=== PATIENT | male | born 1955 | race Caucasian/White ===

== ENCOUNTER → 2018-10-29 | Outpatient (CLI) | payer OTHER ==
[2018-10-29 13:03] LABS: INR 0.87; PROTHROMBIN TIME 12.7 seconds (11.9-14.5)
[2018-10-29 13:04] LABS: PARTIAL THROMBOPLASTIN TIME 29.4 seconds (23.8-35.5)
[2018-10-29 13:10] LABS: BLOOD UREA NITROGEN 26 mg/dL (7-26); BUN/CREATININE RATIO 23 (6-25); CREATININE, SERUM 1.15 mg/dL (0.72-1.25); EST GLOMERULAR FILTRATION RATE > 60 ML/MIN (60-)
--- NOTE | 2018-10-29 14:20 | Diagnostic Imaging Report ---
EXAM: CHEST XRAY LINE PLACEMENT, AP Portable DATE: 10/29/2018 Time stamp on exam: 1:51 PM INDICATION: PICC placement COMPARISON: None FINDINGS: LINES/TUBES: Left-sided PICC terminates overlying the SVC. LUNGS: No consolidations or edema. Left basilar atelectasis. PLEURA: No effusions or pneumothorax. HEART AND MEDIASTINUM: Normal size and contour. BONES AND SOFT TISSUES: No acute findings. Metallic plate overlies the lower cervical spine. IMPRESSION: 1. No acute thoracic abnormality. 2. Left PICC in appropriate position. Signed by: Dr. Mikel Horta DO on 10/29/2018 2:17 PM
== END ==
LOC: DX 12:12
PROVIDERS: ATTEND Internal Medicine Infectious Disease
DX: M86.141 Other acute osteomyelitis, right hand (principal)
CPT/HCPCS: 36415; 36569; 71045; 82565; 84520; 85049; 85610; 85730; 87071; 87075; 87205

== ENCOUNTER → 2018-10-30 | Outpatient (CLI) | payer OTHER ==
--- NOTE | 2018-10-30 12:18 | Diagnostic Imaging Report ---
TECHNIQUE: Magnetic resonance imaging of the RIGHT HAND (Ring/fourth finger) was performed WITHOUT injected contrast. HISTORY: Infection, right fourth ring finger, pain, swelling, cut the end of the finger COMPARISON: None available FINDINGS: BONES: Erosion of the ischial aspect of the fourth distal phalanx, radial greater than ulnar. Mild edema of the base of the residual distal phalanx, with preservation of the fatty marrow signal. JOINTS: No dislocation or joint effusion. SOFT TISSUES: Signal void at the tip of the ring finger, compatible with a soft tissue defect. Marked regional soft tissue edema. Enhancement characteristics cannot be assessed. IMPRESSION: Findings compatible with osteomyelitis involving the distal aspect of the distal phalanx of the ring finger. Signed by: Ravin Connors.O., M.M.M. on 10/30/2018 12:14 PM
== END ==
LOC: MRI 09:26
PROVIDERS: ATTEND Plastic Surgery
DX: L08.9 Local infection of the skin and subcutaneous tissue, unspecified (principal)

== ENCOUNTER → 2018-12-04 | Outpatient (CLI) | payer OTHER ==
[~2018-12-04] MED LIST: IOPAMIDOL 370 MG/ML 200 ML INFUS..BTL INJ ONE; SODIUM CHLORIDE 0.9% 50ML 50 ML ONE
[2018-12-04 11:47] LABS: BLOOD UREA NITROGEN 19 mg/dL (7-26); BUN/CREATININE RATIO 19 (6-25); EST GLOMERULAR FILTRATION RATE > 60 ML/MIN (60-)
--- NOTE | 2018-12-04 12:43 | Diagnostic Imaging Report ---
EXAMINATION: CT scan of the chest with contrast. TECHNIQUE: Spiral CT images of the chest were performed from the lung apices to the level of the adrenal glands after the intravenous administration of 100 cc of Isovue-370. Coronal and sagittal reformatted images were obtained. COMPARISON: None. 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 LUNGS AND AIRWAYS: Scattered small air-filled cysts in the upper lobes right greater than left. Left hemidiaphragmatic elevation with Bandlike opacities in the lingula and left lower lobe compatible with atelectasis. No suspicious nodule or mass lesion. No gross fibrotic change. Trachea, mainstem bronchi, and central lobar and segmental bronchi are patent. PLEURA: No pneumothorax or pleural effusions. HEART AND MEDIASTINUM: Visualized portions of the thyroid gland appear normal. Atherosclerotic calcification of the coronary arteries and aortic arch. No ectasia or aneurysmal dilatation of the thoracic aorta. Great vessel origins are of normal caliber and configuration. Pulmonary outflow tract is of normal caliber. No central pulmonary embolus. Normal heart size without pericardial effusion. LYMPH NODES: No axillary, hilar, or mediastinal lymphadenopathy. ABDOMEN: Visualized portions of the liver, spleen, pancreas, adrenals, and upper poles of the kidneys are unremarkable. BONES AND SOFT TISSUES: No osseous destructive lesions. Cervical spine fusion hardware partially visualized. IMPRESSION: No suspicious pulmonary nodule or mass lesion. Left hemidiaphragmatic elevation with bandlike atelectasis or fibrotic change in the lingula and left lower lobe. Atherosclerotic vascular disease. Signed by: Dr. Anshu Duran M.D. on 12/04/2018 12:40 PM
--- NOTE | 2018-12-04 20:03 | Diagnostic Imaging Report ---
Bone Scan, delayed phase INDICATION: Squamous cell carcinoma of right 5th finger; evaluate for bone metastases COMPARISON: CT of chest 12/04/2018 REPORT: Following intravenous administration of 25 mCi of Tc-99m MDP, dynamic flow and immediate blood pool images of the wrists and hands were obtained followed by 4-hour delayed total body images in the anterior and posterior projections and selected spot images were obtained. The flow and blood pool images show diffusely increased tracer in the right hand and wrist compared to the left without focal abnormality. Amputation of the distal phalanx of the right 4th finger is noted. Distribution of tracer activity is unremarkable throughout the skeletal system on the delayed images. No abnormal accumulation of tracer is seen in the soft tissues or urinary tract. IMPRESSION: 1. No scan evidence of metastatic bone disease. 2. Mild hyperemic process in the right hand and wrist related to recent surgery of 4th finger. Signed by: Dr. Barbara Gresham M.D. on 12/04/2018 8:00 PM
== END ==
LOC: NM 10:57
PROVIDERS: ATTEND Internal Medicine Medical Oncology
DX: C79.51 Secondary malignant neoplasm of bone (principal); Z85.46 Personal history of malignant neoplasm of prostate
CPT/HCPCS: 36415; 71260; 78306; 82565; 84520; A9503; Q9967